=== PATIENT | female | born 2000 | race Two or more races ===

== ENCOUNTER 2024-04-08 02:41 | Observation (INO) | payer MEDICAID, SELFPAY ==
[2024-04-08] VITALS (8 sets, daily range): BP systolic 98–127; BP diastolic 54–81; PULSE 76–103; RESP 16; TEMP 36.8; O2SAT 98; BMI 28.0
== END 2024-04-08 04:30 | disposition home or self-care (01) ==
PROVIDERS: Admitting Provider Obstetrics & Gynecology; PCP Obstetrics & Gynecology; Visit Provider Obstetrics & Gynecology
DX: O47.1 False labor at or after 37 completed weeks of gestation (principal); O46.93 Antepartum hemorrhage, unspecified, third trimester; Z3A.40 40 weeks gestation of pregnancy
CPT/HCPCS: 59025; G0378

== ENCOUNTER 2024-04-09 04:38 | Inpatient (IN) | payer MEDICAID, SELFPAY ==
[2024-04-09] VITALS (251 sets, daily range): BP systolic 83–133; BP diastolic 50–79; PULSE 74–116; RESP 15–19; TEMP 36.6–37; O2SAT 90–100; BMI 28.2
[2024-04-09 06:29] LABS: ROM Kit Lot # 57805053; ROM Swab Mixed By: BDR; Rupture of Fetal Membranes Positive (Negative); Swb Mxed in Solvent 1 min? Yes
--- NOTE | 2024-04-09 06:49 | ESHP_ITS ---
Documentation for date of: 04/09/24 OB Labor/Induct. HPI History of Present Illness History of present illness: 23-year-old at 2 weeks 6 days, SARINA 04/03/2024 presented to labor and delivery triage with contractions. While in triage patient had spontaneous rupture of hands. She is being admitted in early labor. Patient reports contractions, she denies any vaginal bleeding and reports good movements. Patient received care at [facility], all her labs were reviewed as scanned GBS is negative, RPR nonreactive, 2-hour glucose tolerance test, NIPT was negative x 3, AFP was negative, blood group O+, rubella nonimmune, BARRIOS negative, hepatitis C negative, RPR nonreactive, GC chlamydia negative History of Present Adequate Care: Yes Review of Systems Review of Systems Systems Reviewed: All systems reviewed, normal except as documented Meds Home Medications and Allergies Home Medications ?Medication ?Instructions ?Recorded ?Confirmed ?Type prenat.vits,joaquín,[id number] 1 tab PO QDAY 04/08/24 04/09/24 History Allergies Allergy/AdvReac Type Severity Reaction Status Date / Time No Known Allergies Allergy Verified 04/09/24 04:58 OB Exam Physical Exam Vital signs: Temp Pulse Resp BP 98.2 F 88 17 118/75 04/09/24 04:50 04/09/24 04:50 04/09/24 04:50 04/09/24 04:50 Constitutional Constitutional: no acute distress Routine HEENT Exam Head: Present normocephalic and atraumatic Eye: Present EOMI and PERRL ENT: Present mucous membranes moist Routine Neck Exam Neck: Present supple and trachea midline Routine Cardiovascular Exam Cardiovascular: Present RRR Routine Abdominal Exam Abdominal: Present soft and normoactive bowel sounds Detailed Labor and Delivery Exam Dilation (cm): 1 Effacement (%): 50 Cervix position: mid station: -4 Consistency: soft Baseline heart rate: 140 monitor accelerations: 15x15 monitor decelerations: None Routine Extremities Exam Extremities: Present full ROM Routine Skin Exam Skin: Present intact, dry and warm Routine Neurological Exam Neurological: Present alert, oriented X3 and CN II-XII intact Routine Psychiatric Exam Psychiatric: Present normal affect and normal thought process OB Assessment & Plan Assessment and Plan (1) Spontaneous rupture of membranes: Status: Acute Assessment and plan: Admit to Inpatient to labor and Delivery GBS: neg Vital Signs per protocol External monitor/Tocometry Activity: Bedrest w/bathroom privileges Ambulate in Latent Labor with intact membrane Intake and Urine Output Monitoring Urine catheter as needed Diet: As tolerated in latent labor Ice Chips in active labor Intravenous Fluids: Lactated Ringers +/- 5% Dextrose at 125 cc/hour Labs Complete Blood Count Blood Type and Antibody Screen (Indirect [place]) RPR COVID-19 RNA Plan: Misoprostol for cervical ripening until favorable, proceed to oxytocin once ripening is achieved Estimated weight 7-1/2 pounds Anticipate vaginal delivery. Pain management as per protocol, epidural if desired. Patient will require MMR vaccination after delivery
[2024-04-09] MEDS: RINGERS LACTATED 1000 ML 1,000 ML 100 ML IV ×3 (07:07→17:44)
[2024-04-09 07:24] LABS: Basophils % (Auto) 0 % (0-2.5); Eosinophils # (Auto) 0.3 Thou/mm3 (0.0-0.5); Eosinophils % (Auto) 2 % (0-10); Hematocrit 42.3 % (36.0-46.0); Hemoglobin 14.7 g/dL (12.0-16.0); Immature Granulocytes % (Auto) 0 % (0-0); Immature Granulocytes Auto 0.05 Thou/mm3 (0.00-0.00); Lymphocytes # (Auto) 2.5 Thou/mm3 (1.0-4.8); Lymphocytes % (Auto) 18 % (10-50); Mean Corpuscular HGB Conc 34.8 g/dl (31.0-37.0); Mean Corpuscular Hemoglobin 29.1 pg (25.0-35.0); Mean Corpuscular Volume 84 fL (80-100); Monocytes # (Auto) 1.2 Thou/mm3 (0.0-0.8); Monocytes % (Auto) 9 % (0-12); Neutrophils # (Auto) 9.6 Thou/mm3 (1.8-7.7); Neutrophils % (Auto) 71 % (37-80); Nucleated Red Blood Cell % 0 /100 WBC (0); Platelet Count 218 Thou/mm3 (140-440); RDW Standard Deviation 41.1 fL (36.4-46.3); Red Blood Count 5.06 Miln/mm3 (4.00-5.20); White Blood Count 13.6 Thou/mm3 (3.6-11.0)
[2024-04-09 07:57] LABS: Syphilis Nonreactive (Nonreactive)
[2024-04-09] MEDS: MISOPROSTOL 50 mCg TABLET PO (11:00)
[2024-04-09] MEDS: OXYTOCIN in NS 30 units 30 UNIT/500 ML BAG IV (16:22)
--- NOTE | 2024-04-09 18:10 | PD.LDPN ---
Documentation for date of: 04/09/24 OB Labor Progress Note Pain Control Pain control: epidural Pelvic Exam Dilation (cm): 3 Effacement (%): 80 station: -3 Amniotic membrane status: Ruptured Contractions Monitor mode: External Contraction frequency: 2-3 Contraction duration: 40-60 Status status: Category l Assessment and Plan Assessment: active labor Plan OB labor note: continuous present management Comments: Re-start pitocin per protocol Anticipte
[2024-04-09] MEDS: Ampicillin Inj 2,000 MG in SODIUM CHLORIDE 0.9% (P) 100 ML 100 MG IV (19:57)
--- NOTE | 2024-04-09 21:28 | PD.LDPN ---
Documentation for date of: 04/09/24 OB Labor Progress Note Pain Control Pain control: epidural Pelvic Exam Dilation (cm): 5 Effacement (%): 90 station: 0 Amniotic membrane status: Ruptured Contractions Monitor mode: External Contraction frequency: 2-3 Contraction duration: 40-60 Status status: Category l Assessment and Plan Assessment: active labor Plan OB labor note: continuous present management Comments: AROM performed on the forebag Pt progressing well. Anticipate
[2024-04-10] VITALS (60 sets, daily range): BP systolic 108–136; BP diastolic 59–90; PULSE 86–137; RESP 15–19; TEMP 36.7–37.3; O2SAT 85–98
[2024-04-10] MEDS: RINGERS LACTATED 1000 ML 1,000 ML 100 ML IV (01:01)
[2024-04-10] MEDS: Ampicillin Inj 2,000 MG in SODIUM CHLORIDE 0.9% (P) 100 ML 100 MG IV (01:59)
[2024-04-10] MEDS: METHYLERGONOVINE INJ 0.2 MG/ML VIAL IM (05:09)
[2024-04-10] MEDS: fentaNYL CIT INJ 50 mCg/ML AMP 2ML 100 MCG IV (05:14)
[2024-04-10] MEDS: TRANEXAMIC ACID 1,000 MG IVPB 1,000 MG/100 ML BAG 200 MG IV ×2 (05:25→07:28)
[2024-04-10] MEDS: OXYTOCIN in NS 20 units 20 UNIT/1,000 ML BAG 125 UNIT IV ×2 (05:26→10:22)
[2024-04-10] MEDS: BENZO/LANO/ALOE (Dermoplast) 60 GM CAN 1 SPRAY TOP (05:44)
--- NOTE | 2024-04-10 06:00 | OBDSUM_ITS ---
Data (Sch[facility]acher) Data Hx Section: No : 1 Para: 0 Term: 0 : 0 : 0 Delivery Data (Schumacher) Labor Data Stimulated/Augmented: Yes Method: Oxytocin ROM Date: 04/09/24 ROM Time: 05:30 Rupture Type: SROM Amniotic Fluid: Thin Meconium Delivery Data EDC: 04/03/24 EDC calculated by:: LMP/early US confirmation Labor Onset Stage 1 Date: 04/09/24 Labor Onset Stage 1 Time: 19:00 Labor Onset Stage 2 Date: 04/10/24 Labor Onset Stage 2 Time: 02:56 Delivery Date: 04/10/24 Delivery Time: 04:57 Gestational age (weeks): 41 Gestational age (days): 0 Placenta Delivery Date: 04/10/24 Placenta Delivery Time: 05:02 Delivered by: Soraya Pressley Delivery nurse: Kim Torrez Planting Material Carrier at delivery: No Support person(s) at delivery: FOB Other staff at delivery: Nursery Nurse Other staff at delivery: 2nd Nurse Other staff at delivery: Constanza Astudillo Other staff at delivery: Corrine Bowens Delivery Method Delivery: Vaginal Delivery Type: Spontaneous Presentation: Vertex Position: OA Anesthesia Type Primary Anesthesia: Epidural Delivery Room Medications Intrapartum Medications: Antibiotics Other Intrapartum Medications: No Post Delivery Medications: Antibiotics Post Delivery Medications N/A: Yes Placenta Placenta Delivery: Spontaneous Placenta Cultures Obtained: No Placenta Sent for Examination: No Cord Sample: Cord Blood Obtained Episiotomy Episiotomy: None Lacerations #1: Perineal: 2nd degree Perineal repair Sutures used for repair: 3.0 Vicryl (CT) EBL Estimated blood loss (ml): 800 Umbilical Cord Umbilical Vessels: 3 Nuchal Cord: None Body Cord: Not Applicable Additional Procedures Patient was completed 2 AM. And was allowed to labor down for an hour. Then RN began to push for an hour and 30 minutes and patient was +2 station when the CNM was called in. After pushing for 10 minutes patient had an of a viable male . Infant's anterior shoulder delivered with gentle downward traction subsequent delivery the posterior shoulder and the body without complications. placed on mother's abdomen. Vigorous cry upon delivery. Cord was clamped. Cut by FOB. Cord blood obtained. Three-vessel cord noted. Placenta expelled spontaneously and intact. Patient sustained a second-degree perineal laceration. Repaired using a 3-[address] suture. Patient had a considerable amount of bleeding. Patient was given Methergine IM x 1 IV Pitocin x 1 and TXA x 1. Bleeding was finally controlled after manually removing clots from the uterus. Excellent hemostasis achieved after vigorous fundal massage and removal of clots from the posterior fornix. EBL is 800. Patient is still to receive another dose of TXA and another bag of IV Pitocin. Patient will also get 2 g Ancef every 8 for the 24 hours. Sponge and needle count correct. Mother and baby stable, skin to skin and bonding in LDR. Data (Schumacher) [place] Data Gender: Male Weight Grams: 4315 1 Minute Total: 8 5 Minute Total: 9
[2024-04-10] MEDS: IBUPROFEN TAB 400 MG TABLET 800 MG PO ×2 (06:06→21:37)
[2024-04-10] MEDS: ceFAZolin/D5W 2 GM IV 2 GM/100 ML BAG IV ×3 (07:04→23:53)
[2024-04-10] MEDS: DOCUSATE SOD 100 MG CAPSULE PO (10:21)
[2024-04-10 10:59] LABS: Basophils % (Auto) 0 % (0-2.5); Eosinophils % (Auto) 0 % (0-10); Hematocrit 32.3 % (36.0-46.0); Hemoglobin 11.4 g/dL (12.0-16.0); Immature Granulocytes % (Auto) 1 % (0-0); Lymphocytes # (Auto) 1.3 Thou/mm3 (1.0-4.8); Lymphocytes % (Auto) 6 % (10-50); Mean Corpuscular HGB Conc 35.3 g/dl (31.0-37.0); Mean Corpuscular Hemoglobin 29.3 pg (25.0-35.0); Mean Corpuscular Volume 83 fL (80-100); Monocytes # (Auto) 1.1 Thou/mm3 (0.0-0.8); Monocytes % (Auto) 5 % (0-12); Neutrophils # (Auto) 18.8 Thou/mm3 (1.8-7.7); Neutrophils % (Auto) 88 % (37-80); Nucleated Red Blood Cell % 0 /100 WBC (0); Platelet Count 202 Thou/mm3 (140-440); RDW Standard Deviation 40.7 fL (36.4-46.3); Red Blood Count 3.89 Miln/mm3 (4.00-5.20); White Blood Count 21.3 Thou/mm3 (3.6-11.0)
[2024-04-11 05:00] VITALS: BP 95/60; PULSE 75; RESP 16; TEMP 36.4; O2SAT 97
[2024-04-11] MEDS: ceFAZolin/D5W 2 GM IV 2 GM/100 ML BAG IV (07:56)
--- NOTE | 2024-04-11 07:59 | ESDS_ITS ---
DS: Providers Provider Date of admission: 04/09/24 09:57 Primary care physician: Lm Paniagua MD Admitting Provider: Macario Fuchs MD Attending Provider on Admission: Macario Fuchs MD Attending Provider on DC: Soraya Pressley CNM Discharging Provider: Soraya Pressley CNM Anticipated date of discharge: 04/11/24 DS: Diagnosis Discharge Diagnosis (1) Normal spontaneous vaginal delivery: Status: Acute (2) Encounter for care of lactating mother: Status: Acute (3) hemorrhage, delivered: Status: Acute (4) Spontaneous rupture of membranes: Status: Acute (5) Normal labor: Status: Acute Problem List Completed Was Problem List Reviewed/Reconciled?: Yes Summary/Hosp Course Brief History: 23-year-old at 40 weeks 6 days, SARINA 04/03/2024 presented to labor and delivery triage with contractions. While in triage patient had spontaneous rupture of hands. She is being admitted in early labor. Patient reports contractions, she denies any vaginal bleeding and reports good movements. Patient received care at [facility], all her labs were reviewed as scanned GBS is negative, RPR nonreactive, 2-hour glucose tolerance test, NIPT was negative x 3, AFP was negative, blood group O+, rubella nonimmune, BARRIOS negative, hepatitis C negative, RPR nonreactive, GC chlamydia negative. 04/10/24: Patient was completed 2 AM. And was allowed to labor down for an hour. Then RN began to push for an hour and 30 minutes and patient was +2 station when the CNM was called in. After pushing for 10 minutes patient had an of a viable male . Infant's anterior shoulder delivered with gentle downward traction subsequent delivery the posterior shoulder and the body without complications. Infant placed on mother's abdomen. Vigorous cry upon delivery. Cord was clamped. Cut by FOB. Cord blood obtained. Three-vessel cord noted. Placenta expelled spontaneously and intact. Patient sustained a second-degree perineal laceration. Repaired using a 3-[address] suture. Patient had a considerable amount of bleeding. Patient was given Methergine IM x 1 IV Pitocin x 1 and TXA x 1. Bleeding was finally controlled after manually removing clots from the uterus. Excellent hemostasis achieved after vigorous fundal massage and removal of clots from the posterior fornix. EBL is 800. Patient is still to receive another dose of TXA and another bag of IV Pitocin. Patient will also get 2 g Ancef every 8 for the 24 hours. Sponge and needle count correct. Mother and baby stable, skin to skin and bonding in LDR. 04/10/24: day 1. Patient is stable and afebrile doing well. Patient denies dizziness shortness of breath. No problems with voiding passing gas ambulating no issues. Uterus is nontender fundus firm minimal lochia. Discharge instructions given. Patient to follow-up with Soraya Pressley CNM in 3 weeks Peripartum Data Delivery Method: Normal Vaginal Delivery Episiotomy Description: None Laceration Description: yes and see Delivery Summary complications: uterine atony (PPH) [place] 1: Gender: Male Disposition of : home Status at Discharge Cognitive/behavioral status at discharge: Alert and oriented x 3 Functional status at discharge: independent ambulation Overall status at discharge: patient is progressing back to baseline Time Spent with Patient Time attestation: Total time spent providing and/or coordinating discharge services: Time spent: Greater than 30 minutes Exam Vital Signs Temp Pulse Resp BP Pulse Ox 98.8 F 116 H 19 136/83 H 97 04/10/24 03:07 04/10/24 05:13 04/10/24 03:07 04/10/24 05:13 04/10/24 05:23 Constitutional Constitutional: no acute distress Routine HEENT Exam Head: Present normocephalic and atraumatic Eye: Present EOMI, PERRL and normal accommodation ENT: Present mucous membranes moist Routine Neck Exam Neck: Present supple, full ROM and trachea midline Routine Respiratory Exam Respiratory: Present chest non-tender, lungs clear, normal breath sounds and no resp distress Routine Cardiovascular Exam Cardiovascular: Present RRR Routine Abdominal Exam Abdominal: Present soft and normoactive bowel sounds; Absent tenderness or distended Comments: Uterus nontender fundus firm Routine Exam External: Present normal urethra appearance, swelling and lacerations (healing); Absent lesions Routine Extremities Exam Extremities: Present full ROM, pulses intact and normal capillary refill; Absent calf tenderness or tenderness Routine Back/Spine/Pelvis Exam Back/Spine: Present full ROM Routine Skin Exam Skin: Present intact, dry and warm Routine Neurological Exam Neurological: Present alert, oriented X3 and CN II-XII intact Routine Psychiatric Exam Psychiatric: Present normal affect and normal thought process Discharge Plan Plan Patient Disposition: HOME (Self Care) Patient condition on transfer: Stable Prescriptions/Referrals Prescriptions/Med Rec: New ibuprofen 800 mg tablet 800 mg PO Q6H MDD 4 PRN (Reason: pain) Qty: 120 0RF docusate sodium [Colace] 100 mg capsule 100 mg PO BID Qty: 60 0RF lanolin 50 % ointment 1 applic topical TID PRN (Reason: skin irritation) Qty: 15 0RF Continued prenat.vits,joaquín,[id number] Tablet 1 tab PO QDAY Referrals: Lm Paniagua MD [Primary Care Provider] - Patient/Caregiver Discharge Instructions Meds to Beds: No Discharge Activity: activity as tolerated Other Discharge Activity Instructions:: Follow-up with Soraya Pressley CNM in 3 weeks Education Materials: After a Vaginal , How to Breastfeed, : Caring for Yourself Print Language: Mexican Stand Alone Forms: Margaret Award Info., Patient Portal Info Letter Discharge Order Discharge Orders: Discharge (Routine); Ordered 04/11/24 Ordered By: Soraya Pressley Planned Discharge Date 04/11/24
[2024-04-11 08:03] VITALS: BP 108/70; PULSE 75; RESP 18; TEMP 36.7; O2SAT 99
[2024-04-11] MEDS: DOCUSATE SOD 100 MG CAPSULE PO (08:36)
== END 2024-04-11 14:15 | disposition home or self-care (01) | DRG 560 ==
LOC: S4SX 04-10 11:58 → S4NX 04-10 14:12
PROVIDERS: Nurse Practitioner Women's Health; Admitting Provider Obstetrics & Gynecology; PCP Family Medicine; Visit Provider Obstetrics & Gynecology
DX: O42.02 Full-term premature rupture of membranes, onset of labor within 24 hours of rupture (principal); O77.0 Labor and delivery complicated by meconium in amniotic fluid; O70.1 Second degree perineal laceration during delivery; Z37.0 Single live birth; O72.1 Other immediate postpartum hemorrhage; Z3A.40 40 weeks gestation of pregnancy
CPT/HCPCS: 36415; 59025; 59409; 84112; 85025; 86780; 86850; 86900; 86901; 94762; J0290; J0689; J2210; J2590; J2795; J3010; J3490; J7120; A9270; J0690